=== PATIENT | male | born 1950 | race Caucasian/White ===

== ENCOUNTER 2019-05-03 07:44 | Day surgery (SDC) | payer OTHER, BC ==
[2019-04-30 11:19] VITALS: BMI 26.3
[~2019-05-03 07:44] MED LIST: LIDOCAINE HCL 2% (50ML VIAL) NR ONE
[2019-05-03] MEDS ORDERED: LIDOCAINE HCL 2% (20ML MULTI-DOSE VIAL) ONE (09:16)
[2019-05-03 10:39] VITALS: TEMP 97.8
[2019-05-03 11:46] VITALS: BP 116/70; PULSE 72
--- NOTE | 2019-05-04 18:58 | OP ---
DATE OF OPERATION: 05/03/2019 PREOPERATIVE DIAGNOSIS: Right thumb mass and interphalangeal joint synovitis and spur. POSTOPERATIVE DIAGNOSIS: Right thumb mass and interphalangeal joint synovitis and spur. OPERATIVE PROCEDURE: 1. Right thumb mass excision. 2. Right thumb interphalangeal joint debridement and excision of spur. SURGEON: Carlton Aburto MD CERTIFIED RETINAL ANGIOGRAPHER: YAKOV Jamil ANESTHESIA: Local. COMPLICATIONS: None. ESTIMATED BLOOD LOSS: Minimal. INDICATIONS FOR PROCEDURE: The patient is a 68-year-old male with the above findings indicated for operative treatment. Risks, benefits, and alternatives were discussed with the patient at length. Proper informed consent was obtained. PROCEDURE: After proper identification of the patient and correct operative site, the patient was taken to the operating room and placed upon the table. Parts were well padded. Local anesthesia was given with 2% lidocaine. Right upper extremity was prepped and draped in the usual sterile fashion. Finger tourniquet was used. A V-shaped incision was made over the mass at the radial aspect dorsally of the IP joint. Incision was taken sharply through the skin with sharp dissection to the subcutaneous tissue, elevating the skin off the mass, which was a cystic structure. The mass was traced down to the interphalangeal joint and excised in whole and sent for pathologic evaluation. Inside the joint there was synovitis which was debrided and a bone spur was excised off the dorsal aspect of the distal phalanx of the IP joint. The wound was irrigated and repaired with 5-0 fast-absorbing plain gut sutures. Sterile dressings were applied. The patient was brought to the recovery room in stable condition. He tolerated the procedure well. Marko Thomas, the household personal assistant, was integral throughout the procedure. Procedure could not have been performed without a skilled operative household personal assistant. CARLTON ABURTO M.D. [id number]
--- NOTE | 2019-05-07 12:25 | PATH ---
Surgical Pathology Report Patient Name: DIXIE KENDRICK Med. Rec. #: [id number] /Age/Gender: 1950 (Age: 68) / M Account: [id number] Location: [facility] Taken: 05/03/2019 Received: 05/03/2019 Reported: 05/07/2019 Physicians: Dean Hernandez M.D. Specimen(s) Received RIGHT THUMB MASS Clinical History Right thumb mass Final Diagnosis THUMB, RIGHT, MASS, EXCISION: GANGLION CYST. Electronically Signed Dionne Mckinley M.D. Gross Description Received in formalin labeled "right thumb mass," is a 1.2 x 0.5 x 0.2 cm kaplan portion of soft tissue. The specimen is submitted in toto in one cassette. 05/04/201905/04/2019
== END 2019-05-03 11:15 | disposition home or self-care (01) ==
LOC: FASU 07:44
PROVIDERS: ATTEND Orthopaedic Surgery Hand Surgery
PROC: 0KBC0ZZ Excision of Right Hand Muscle, Open Approach (ICD-10-PCS; principal; 2019-05-03 09:46)
DX: D21.11 Benign neoplasm of connective and other soft tissue of right upper limb, including shoulder (principal)
CPT/HCPCS: 88304-TC